=== PATIENT | female | born 1960 | race African-American/Black ===

== ENCOUNTER 2018-12-04 11:56 | Emergency (ER) | payer OTHER ==
[~2018-12-04] VITALS: Ht 182.9 cm; Wt 80.0 kg
[2018-12-04 12:01] VITALS: Ht 182.9 cm; Wt 80.0 kg
[2018-12-04] MEDS ORDERED: LABETALOL HCL 20MG INJ IV PRN (12:30)
--- NOTE | 2018-12-04 12:37 | STROKE ---
Date/Time of Note Date/Time of Note DATE: 12/04/18 TIME: 15:36 Patient Information General Arrival Date Age 58 Gender female Weight 80 kg POC Glucose Glucose Result Bedside Glucose - 72 Hours Test 12/04/18 11:59 Bedside Glucose 107 mg/dL (70-220) Vital Signs Vital Signs Vital Signs Date Temp Pulse Resp B/P (MAP) Pulse Ox O2 O2 Flow FiO2 Time Delivery Rate 12/04/18 66 18 179/92 99 Room Air 12:10 (121) 12/04/18 97.8 12:01 Patient History Current Medications Allergies: Coded Allergies: No Known Allergy (Unverified , 12/04/18) Labs Coagulation Labs: Coagulation Test 12/04/18 11:59 Activated Partial Thromboplast Time 32.8 Sec (23.0-35.0) NIH Stroke Scale NIH Stroke Scale Date/Time Recorded DATE: 12/04/18 TIME: 15:36 Submitted By Rod Juan t-PA Imaging Review Date/Time Imaging Reviewed DATE: 12/04/18 TIME: 15:36 t-PA Administration Weight 80 kg Recommedation submitted by Rod Juan Recommendations Recommendation transient confusion and diffuse weakness and fatigue earlier today in the context of blood pressure 201/100. now feeling much better. nih stroke scale 0. needs admission for mri and blood pressure control. needs inpatient neurology consultation to direct the rest of the workup. ROD JUAN MD Dec 04, 2018 12:37
--- NOTE | 2018-12-04 13:19 | ERD ---
ER Documentation Chief Complaint Chief Complaint sudden onset of weakness and fatigue while working HPI Patient is a 58-year-old female with hypertension who presents as a code green. 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 She went limp and had altered mental status and was unable to speak. This happened at 11:44 AM and was witnessed by her coworkers. She does have a primary doctor. ROS All systems reviewed and are negative except as per history of present illness. Allergies Allergies: Coded Allergies: No Known Allergy (Unverified , 12/04/18) PMhx/Soc History of Surgery: No Anesthesia Reaction: No Hx Neurological Disorder: No Hx Respiratory Disorders: No Hx Cardiac Disorders: Yes (HTN) Hx Psychiatric Problems: No Hx Miscellaneous Medical Probl: No Hx Alcohol Use: Yes (OCASSIONAL ) Hx Substance Use: No Hx Tobacco Use: Yes Smoking Status: Current some day smoker FmHx Family History: No diabetes Physical Exam Vitals Vital Signs Date Temp Pulse Resp B/P (MAP) Pulse Ox O2 O2 Flow FiO2 Time Delivery Rate 12/04/18 68 18 164/90 99 Room Air 13:00 (114) 12/04/18 66 18 179/92 99 Room Air 12:10 (121) 12/04/18 97.8 60 18 201/100 99 12:01 (133) Physical Exam Const: Moderate distress Head: Atraumatic Eyes: Normal Conjunctiva ENT: Normal External Ears, Nose and Mouth. Neck: Full range of motion. No meningismus. Resp: Clear to auscultation bilaterally Cardio: Regular rate and rhythm, no murmurs Abd: Soft, non tender, non distended. Normal bowel sounds Skin: No petechiae or rashes Back: No midline or flank tenderness Ext: No cyanosis, or edema Neur: Awake, no obvious facial droop or one-sided weakness of the upper or lower extremities bilaterally, equal hairspring staker strength, no slurred speech Result Diagram: 12/04/18 1159 12/04/18 1159 Results 24 hrs Laboratory Tests Test 12/04/18 11:59 12/04/18 12:50 White Blood Count 6.6 10^3/ul Red Blood Count 5.46 10^6/ul Hemoglobin 15.6 g/dl Hematocrit 49.0 % Mean Corpuscular Volume 89.7 fl Mean Corpuscular Hemoglobin 28.6 pg Mean Corpuscular Hemoglobin Concent 31.8 g/dl Red Cell Distribution Width 14.5 % Platelet Count 323 10^3/UL Mean Platelet Volume 9.4 fl Immature Granulocytes % 0.200 % Neutrophils % 31.7 % Lymphocytes % 47.4 % Monocytes % 18.0 % Eosinophils % 1.8 % Basophils % 0.9 % Nucleated Red Blood Cells % 0.0 /100WBC Immature Granulocytes # 0.010 10^3/ul Neutrophils # 2.1 10^3/ul Lymphocytes # 3.1 10^3/ul Monocytes # 1.2 10^3/ul Eosinophils # 0.1 10^3/ul Basophils # 0.1 10^3/ul Nucleated Red Blood Cells # 0.0 10^3/ul Prothrombin Time 12.8 Sec Prothrombin Time Ratio 1.0 INR International Normalized Ratio 0.95 Activated Partial Thromboplast Time 32.8 Sec Sodium Level 139 mmol/L Potassium Level 4.8 mmol/L Chloride Level 99 mmol/L Carbon Dioxide Level 32 mmol/L Anion Gap 8 Blood Urea Nitrogen 19 mg/dl Creatinine 0.72 mg/dl Est Glomerular Filtrat Rate mL/min > 60 mL/min Glucose Level 113 mg/dl Bedside Glucose 107 mg/dL Hemoglobin A1c 5.7 % Calcium Level 10.2 mg/dl Creatine Kinase 102 IU/L Creatine Kinase Index 0.5 Creatinine Kinase MB (Mass) 0.56 ng/ml Troponin I 0.013 ng/ml Triglycerides Level 210 mg/dl Cholesterol Level 219 mg/dl LDL Cholesterol, Calculated 133 mg/dl HDL Cholesterol 44 mg/dl Cholesterol/HDL Ratio 4.9 RATIO Ethyl Alcohol Level < 10.0 mg/dl Urine Color YELLOW Urine Clarity CLEAR Urine pH 6.0 Urine Specific [place] 1.016 Urine Ketones NEGATIVE mg/dL Urine Nitrite NEGATIVE mg/dL Urine Bilirubin NEGATIVE mg/dL Urine Urobilinogen NEGATIVE mg/dL Urine Leukocyte Esterase NEGATIVE Izabella/ul Urine Microscopic RBC 1 /HPF Urine Microscopic WBC 1 /HPF Urine Squamous Epithelial Cells FEW /HPF Urine Mucus FEW /HPF Urine Hemoglobin 1+ mg/dL Urine Glucose NEGATIVE mg/dL Urine Total Protein NEGATIVE mg/dl Urine Opiates Screen Negative Urine Barbiturates Negative Urine Amphetamines Screen Negative Urine Benzodiazepines Screen Negative Urine Cocaine Screen Negative Urine Cannabinoids Negative Current Medications Medications Dose Sig/Terri Start Time Status Last (Trade) Ordered Route PRN Stop Time Admin Dose Reason Admin Labetalol 20 mg Q20M PRN 12/04/18 HCl IV ELEVATED 12:30 (Labetalol) BLOOD PRESSURE 25 mg ONCE ONCE 12/04/18 DC 12/04/18 Diphenhydrami PO 13:30 13:28 ne HCl 12/04/18 13:31 (Benadryl) Procedures/MDM EKG read by me: Rate/Rhythm: Regular rate and rhythm Intervals: Normal Impression: No evidence of ischemia or arrhythmia CT brain negative per radiology. Chest x-ray read by radiology. Smoking Cessation Therapy: Pt. was lectured for greater than 3 minutes on the health risks of continued smoking and the benefits of cessation. Patient is a 58-year-old female who presents with dizziness, syncope, and weakness. A code stroke was called immediately upon evaluation. The timeline is as follows: Last known well time: 11:44 AM Code stroke called: 11:58 AM Teleneurology called: 11:[address] scan: 12:[address] Juan from neurology: 12:[address] scan showed no focal deficit or bleed: 12:[address] Juan and I discussed that there will be no TPA given as the patient's symptoms have resolved: 12:35 PM The patient was given labetalol 20 mill grams IV for hypertensive emergency. Her symptoms have resolved now and she feels better. I still wanted to admit her to the hospital for MRI and further work-up. At this point I doubt acute stroke. However there is concern for hypertensive emergency, seizure, or syncope. The patient's insurance is saying that she is capitated to [facility]. I spoke with the doctor there who has accepted the patient in transfer. However the patient is adamantly refusing transfer to this facility at this time. She understands that she would be responsible for the financial cost if she stays here at [facility] and she does not want to so she asked to be discharged. I discussed the possibility of hypertensive emergency, stroke, syncope, or seizure and she understands the risks. I told her that she is a follow-up closely with her primary doctor within 24 to 48 hours and to return immediately if she develops any worsening symptoms. She understands the plan. Critical Care: Time: 35 minutes excluding all billable procedures. Treatments/Evaluations: Close monitoring and treatment of unstable vital signs, cardiorespiratory, and neurologic status, while maintaining tight balance of fluid, respiratory, and cardiac interventions. Departure Diagnosis: Primary Impression: Hypertensive emergency Additional Impression: Acute weakness Condition: Fair Patient Instructions: High Blood Pressure (Hypertension), Weakness, Unk Cause Referrals: Your doctor Additional Instructions: Call your primary care doctor TOMORROW for an appointment during the next 1-2 days.See the doctor sooner or return here if your condition worsens before your appointment time. VESTA DOMINGO MD Dec 04, 2018 13:19
[2018-12-04] MEDS ORDERED: DIPHENHYDRAMINE 25 MG CAP PO ONE (13:30)
[2018-12-04 13:52] VITALS: BP 161/93; PULSE 68; RESP 16
== END 2018-12-04 14:00 | disposition home or self-care (01) ==
LOC: E/R 11:56
DX: I16.1 Hypertensive emergency (principal); R40.2142 Coma scale, eyes open, spontaneous, at arrival to emergency department; R40.2252 Coma scale, best verbal response, oriented, at arrival to emergency department; R40.2362 Coma scale, best motor response, obeys commands, at arrival to emergency department; I10 Essential (primary) hypertension; F17.210 Nicotine dependence, cigarettes, uncomplicated; R41.0 Disorientation, unspecified
CPT/HCPCS: 36415; 70450; 71045; 80048; 80061; 80307; 81001; 82550; 82553; 82962; 83036; 84484; 85025; 85610; 85730; 93005; Z7502; Z7610

== ENCOUNTER 2018-12-19 15:01 | Emergency (ER) | payer OTHER ==
[~2018-12-19] VITALS: Ht 182.9 cm; Wt 80.5 kg
--- NOTE | 2018-12-19 15:06 | ERD ---
ER Documentation Chief Complaint Chief Complaint ap HPI The patient is a 58-year-old male, presenting with acute epigastric abdominal pain while she was at work. The pain make her dizzy; the code green was activated. She denies fever or chills, neck pain, chest pain, dyspnea, vomiting, dysuria, diarrhea. She is in a lot of stress, does not smoke nor drink Medical history: Hypertension Past surgical history: None ROS All systems reviewed and are negative except as per history of present illness. Allergies Allergies: Coded Allergies: No Known Allergy (Unverified , 12/04/18) PMhx/Soc History of Surgery: No Anesthesia Reaction: No Hx Neurological Disorder: No Hx Respiratory Disorders: No Hx Cardiac Disorders: Yes (HTN) Hx Psychiatric Problems: No Hx Miscellaneous Medical Probl: No Hx Alcohol Use: Yes (OCASSIONAL ) Hx Substance Use: No Hx Tobacco Use: Yes Physical Exam Vitals Vital Signs Date Temp Pulse Resp B/P (MAP) Pulse Ox O2 O2 Flow FiO2 Time Delivery Rate 12/19/18 98.3 62 18 172/64 100 17:36 (100) 12/19/18 98.8 67 18 188/93 100 15:15 (124) Physical Exam Const: No acute distress. Head: Atraumatic. Eyes: Normal Conjunctiva. ENT: Normal External Ears, Nose and Mouth. Neck: Full range of motion. No meningismus. Resp: Clear to auscultation bilaterally. Cardio: Regular rate and rhythm. Abd: Soft, non distended, normal bowel sounds, mild epigastric tenderness, no rigidity/rebound/CVA tenderness Skin: No petechiae or rashes. Back: No midline or flank tenderness. Ext: No cyanosis, or edema. Neur: Awake and alert. No focal deficit Psych: stressed Result Diagram: 12/19/18 1530 12/19/18 1530 Results 24 hrs Laboratory Tests Test 12/19/18 15:03 12/19/18 15:30 12/19/18 16:27 Bedside Glucose 105 mg/dL White Blood Count 7.5 10^3/ul Red Blood Count 5.16 10^6/ul Hemoglobin 14.7 g/dl Hematocrit 46.8 % Mean Corpuscular Volume 90.7 fl Mean Corpuscular Hemoglobin 28.5 pg Mean Corpuscular 31.4 g/dl Hemoglobin Concent Red Cell Distribution Width 14.3 % Platelet Count 328 10^3/UL Mean Platelet Volume 9.9 fl Immature Granulocytes % 0.100 % Neutrophils % % Segmented Neutrophils % (Manual) 27 % Lymphocytes % % Lymphocytes % (Manual) 58 % Monocytes % % Monocytes % (Manual) 11 % Eosinophils % % Eosinophils % (Manual) 3 % Basophils % % Basophils % (Manual) 1 % Nucleated Red Blood Cells % 0.0 /100WBC Immature Granulocytes # 0.010 10^3/ul Neutrophils # 10^3/ul Lymphocytes (Manual) 4.3 10^3/ul Lymphocytes # 10^3/ul Monocytes # 10^3/ul Monocytes # (Manual) 0.8 10^3/ul Eosinophils # 10^3/ul Basophils # 10^3/ul Basophils # (Manual) 0.0 10^3/ul Nucleated Red Blood Cells # 10^3/ul Platelet Estimate NORMAL Giant Platelets 2 % Sodium Level 142 mmol/L Potassium Level 3.8 mmol/L Chloride Level 101 mmol/L Carbon Dioxide Level 33 mmol/L Anion Gap 8 Blood Urea Nitrogen 16 mg/dl Creatinine 0.78 mg/dl Est Glomerular Filtrat Rate mL/min > 60 mL/min Glucose Level 113 mg/dl Calcium Level 10.2 mg/dl Total Bilirubin 0.4 mg/dl Direct Bilirubin 0.00 mg/dl Indirect Bilirubin 0.4 mg/dl Aspartate Amino Transf (AST/SGOT) 35 IU/L Alanine 24 IU/L Aminotransferase (ALT/SGPT) Alkaline Phosphatase 82 IU/L Troponin I < 0.012 ng/ml Total Protein 8.7 g/dl Albumin 4.6 g/dl Globulin 4.10 g/dl Albumin/Globulin Ratio 1.12 Lipase 84 U/L Bedside Urine pH (LAB) 6.0 Bedside Urine Protein (LAB) 1+ Bedside Urine Glucose (UA) Negative Bedside Urine Ketones (LAB) Negative Bedside Urine Blood Negative Bedside Urine Nitrite (LAB) Negative Bedside Urine Leukocyte Esterase Negative (L Procedures/MDM [place] [id number] Radiology Main Line: [phone] DIAGNOSTIC IMAGING REPORT Patient: NIKKI CRUZ : 1960 Age: 58 Sex: F MR #: [id number] DOS: 12/19/18 1536 Ordering MD: AFSANEH CACERES MD Location: E/R Room/Bed: PROCEDURE: CT Abdomen and Pelvis without contrast. CLINICAL INDICATION: Abdominal pain. TECHNIQUE: CT scan of the abdomen and pelvis without contrast was performed on a multidetector high-resolution CT scanner. The patient was scanned without intravenous contrast. Coronal and sagittal reformatted images were obtained from the axial source images. Images were reviewed on a high-resolution PACS workstation. One or more of the following dose reduction techniques were used: Automated exposure control, adjustment of the mA and/or kV according to patient size, use of iterative reconstruction technique. DICOM images are available. The total exam CTDI equals 10.87 mGy and the total exam DLP equals 629.06 mGy- cm. COMPARISON: None available. FINDINGS: Motion artifact limits the examination. CT ABDOMEN: Visualized lung bases: No significant infiltrate or pleural/pericardial effusion. The heart size is normal. Liver: The liver is normal in size and demonstrates normal attenuation. No evidence of solid hepatic mass or intrahepatic ductal dilatation. Gallbladder and bile ducts: Unremarkable. Spleen: Unremarkable. Pancreas: Unremarkable. No ductal dilatation, mass, or peripancreatic stranding. Adrenal glands: Unremarkable. Kidneys: No hydronephrosis, stones, or solid lesions seen. Vasculature: There is moderate aortoiliac atherosclerosis. No abdominal aortic aneurysm. Negative IVC. Lymph nodes: No adenopathy. GI: There is no evidence of inflamed appendix. Negative terminal ileum and rectum. No evidence of obstruction. Scattered diverticula are present throughout the colon. Peritoneal cavity: No free fluid or free air. CT PELVIS: : Normal appearing bladder, distal ureters and ureterovesiculal junctions. A 2 cm calcified uterine fibroid is present. Otherwise, the pelvic organs are grossly unremarkable. Peritoneal cavity: No free fluid or free air. Lymph nodes: No adenopathy. Osseous structures: A 6 mm sclerotic lesion in the proximal right femur likely represents a bone island. No acute osseous injury. No lytic or blastic lesions. Other: None. IMPRESSION: Limited examination secondary to motion artifact and lack of IV contrast. 1. Grossly, no evidence of acute abdominopelvic inflammatory process, mass or lymphadenopathy. 2. Diverticulosis. 3. Moderate aortoiliac atherosclerosis. RPTAT: JJ .Domingo Brink MD, MD Date Time Electronically viewed and signed by .Domingo Brink MD, MD on 12/19/2018 16:49 .A/ CC: AFSANEH CACERES MD [phone] MEDICAL MAKING DECISION: The patient is a 58-year-old female, presenting with abdominal pain of unclear etiology, resolved, acute stress, is stable for outpatient follow-up The differential diagnoses considered include but are not limited to cholelithiasis, cholecystitis, choledocholithiasis, cholangitis, pancreatitis, hepatitis, gastritis, peptic ulcer disease, gastric ulcer, appendicitis, cystitis, diverticulitis, partial small bowel obstruction. Departure Diagnosis: Primary Impression: Abdominal pain Additional Impression: Stress Condition: Good Comments I discussed the findings with the patient. I advised the patient to follow-up with the primary physician in about 1-2 days, sooner if needed and return if any concern. Disclaimer: Inadvertent spelling and grammatical errors are likely due to EHR/dictation software use and do not reflect on the overall quality of patient care. Also, please note that the electronic time recorded on this note does not necessarily reflect the actual time of the patient encounter. AFSANEH CACERES MD Dec 19, 2018 15:06
[2018-12-19 15:15] VITALS: Ht 182.9 cm; Wt 80.5 kg
[2018-12-19 17:36] VITALS: BP 172/64; PULSE 62; RESP 18
== END 2018-12-19 17:40 | disposition home or self-care (01) ==
LOC: E/R 15:01
DX: R10.13 Epigastric pain (principal); R45.7 State of emotional shock and stress, unspecified; I10 Essential (primary) hypertension; R40.2142 Coma scale, eyes open, spontaneous, at arrival to emergency department; R40.2362 Coma scale, best motor response, obeys commands, at arrival to emergency department; R40.2212 Coma scale, best verbal response, none, at arrival to emergency department; Z87.891 Personal history of nicotine dependence
CPT/HCPCS: 74176; 80053; 81003; 82962; 83690; 84484; 85025; 93005; Z7502

== ENCOUNTER 2018-12-25 14:58 | Emergency (ER) | payer SELFPAY ==
[~2018-12-25] VITALS: Ht 182.9 cm; Wt 80.0 kg
[2018-12-25 15:04] VITALS: BP 153/74; PULSE 62; RESP 17; Ht 182.9 cm; Wt 80.0 kg
== END 2018-12-25 16:47 | disposition left against medical advice (07) ==
LOC: E/R 14:58
DX: Z53.21 Procedure and treatment not carried out due to patient leaving prior to being seen by health care provider (principal)